=== PATIENT | male | born 1985 | race Asian ===

== ENCOUNTER 2017-12-21 13:38 | Emergency (ER) | payer OTHER ==
[~2017-12-21] VITALS: Ht 175.3 cm; Wt 93.2 kg
[2017-12-21] MEDS ORDERED: PERTUSS(ACELL),DIPH,TET VAC/PF 0.5 ML VIAL IM ONE (14:45)
[2017-12-21] MEDS ORDERED: AMOX TR/POT CLAV 875 MG/125 MG TABLET PO ONE (14:45)
[2017-12-21] MEDS ORDERED: BACITRACIN/POLYMYXIN B 15 GM OINTMENT TP ONE (14:45)
[2017-12-21 15:58] VITALS: BP 141/79
== END 2017-12-21 16:05 | disposition home or self-care (01) ==
LOC: EMS 13:39
DX: S61.552A Open bite of left wrist, initial encounter (principal); Y04.1XXA Assault by human bite, initial encounter; Y93.89 Activity, other specified; Y92.89 Other specified places as the place of occurrence of the external cause; Y99.8 Other external cause status
CPT/HCPCS: 90471; 90715; 99283